=== PATIENT | male | born 1980 | race Caucasian/White ===

== ENCOUNTER 2016-12-08 11:21 | Emergency (ER) | payer BC ==
[2016-12-08 11:55] VITALS: BP 127/75
--- NOTE | 2016-12-08 12:31 | UC ---
Throat Pain/Nasal Guido HPI - HPI Summary HPI Summary: compaliont of cough and nasal congestion that startex approx6 weeks ago sore throat for over a week productive cough that is worse at night- yellow/green sputum cough id worse at night - coughing fits constantly fatigued frequent headaches- pressure in his sinuses denies fever and chills, shortness of breath taking ibuprofen for headaches with relief - History of Current Complaint Chief Complaint: UCRespiratory Stated Complaint: COUGH,CONGESTION Time Seen by Provider: 12/08/16 12:21 Hx Obtained From: Patient - Allergies/Home Medications Allergies/Adverse Reactions: Allergies Allergy/AdvReac Type Severity Reaction Status Date / Time No Known Allergies Allergy Verified 12/08/16 11:55 PMH/Surg Hx/FS Hx/Imm Hx Previously Healthy: Yes - Surgical History Surgical History: Yes Surgery Procedure, Year, and Place: L shoulder - Family History Known Family History: Positive: None, Hypertension Negative: Cardiac Disease, Diabetes - Social History Occupation: Employed Full-time Lives: With Family Alcohol Use: Rare Substance Use Type: None Smoking Status (MU): Never Smoked Tobacco Review of Systems Constitutional: Fatigue Skin: Negative Eyes: Negative ENT: Sore Throat, Ear Ache, Nasal Discharge Respiratory: Cough Cardiovascular: Negative Gastrointestinal: Negative Genitourinary: Negative Motor: Negative Neurovascular: Negative Musculoskeletal: Negative Neurological: Negative Psychological: Negative All Other Systems Reviewed And Are Negative: Yes Physical Exam Triage Information Reviewed: Yes Appearance: No Pain Distress, Well-Nourished Vital Signs: Initial Vital Signs Temp 96.3 F 12/08/16 11:53 Pulse 73 12/08/16 11:53 Resp 14 12/08/16 11:53 BP 127/75 12/08/16 11:53 Pulse Ox 97 12/08/16 11:53 Vital Signs Reviewed: Yes ENT: Positive: Pharyngeal erythema, Nasal congestion, Nasal drainage, TMs normal , Other: - frontal and maxillary sinus tenderness. Negative: TM red Neck: Positive: No Lymphadenopathy Respiratory: Positive: Lungs clear, Normal breath sounds, No respiratory distress, No accessory muscle use Cardiovascular: Positive: RRR, No Murmur Abdomen Description: Positive: Nontender, Soft Bowel Sounds: Positive: Present Musculoskeletal: Positive: No Edema Neurological: Positive: Alert Psychological Exam: Normal Skin Exam: Normal Throat Pain/Nasal Course/Dx - Course Course Of Treatment: exam completed. will treat for secondary infectiosinusitis and bronchitis - Differential Dx/Diagnosis Differential Diagnosis/HQI/PQRI: Sinusitis, Tonsillitis, URI, Other - bronchitis , pneumonia Provider Diagnoses: sinusitis, bronchitis Discharge - Discharge Plan Condition: Stable Disposition: HOME Prescriptions: Albuterol HFA INHALER* [Ventolin HFA Inhaler*] 2 puff INH Q4H PRN #1 mdi PRN Reason: Cough Amoxicillin/Clavulanate TAB* [Augmentin TAB 875*] 875 mg PO BID #20 tab Spacer/Aerosol-Holding Chamber [Aerochamber Mv] 1 mis XX Q4HR #1 mis Patient Education Materials: Sinusitis (ED), Acute Bronchitis (ED) Referrals: Earl Atwood MD [Primary Care Provider] - Additional Instructions: Please take antibiotic as directed Use your albuterol inhaler every 4-6 hours when needed for wheezing, shortness of breath or uncontrolled coughing. Increase fluids and rest Take acetaminophen or ibuprofen for fever or pain Please review your discharge instructions. If your symptoms do not improve please call your primary care provider or return to urgent care.
== END 2016-12-08 12:46 | disposition home or self-care (01) ==
LOC: UCCORT 11:21
DX: J32.9 Chronic sinusitis, unspecified (principal); J40 Bronchitis, not specified as acute or chronic
CPT/HCPCS: 99212; G0463

== ENCOUNTER 2017-01-26 21:42 | Emergency (ER) | payer BC ==
[2017-01-26 21:51] VITALS: BP 127/89
[2017-01-26] MEDS ORDERED: DOXYcycline CAP(*) 100 MG PO ONE ×2 (22:02)
--- NOTE | 2017-01-26 22:06 | UC ---
Skin Complaint HPI - HPI Summary HPI Summary: tick in back, not sure how long, does not look like a deer tick, it is large and puente in color - History of Current Complaint Chief Complaint: UCSkin Time Seen by Provider: 01/26/17 22:02 Stated Complaint: TICK Hx Obtained From: Patient Onset/Duration: Sudden Onset, Lasting Days Skin Exposure Onset/Duration: Days Ago Timing: Constant Onset Severity: Mild Current Severity: Mild Location: Discrete Aggravating: Nothing Alleviating: Nothing Associated Signs & Symptoms: Positive: Negative Related History: Insect Bite/Sting - Allergy/Home Medications Allergies/Adverse Reactions: Allergies Allergy/AdvReac Type Severity Reaction Status Date / Time No Known Allergies Allergy Verified 01/26/17 21:47 Home Medications: Home Medications NK [No Home Medications Reported] 01/26/17 [History Confirmed 01/26/17] Review of Systems Skin: Other - tick Eyes: Negative ENT: Negative Respiratory: Negative Cardiovascular: Negative Gastrointestinal: Negative Genitourinary: Negative Motor: Negative Neurovascular: Negative Musculoskeletal: Negative Neurological: Negative Psychological: Negative All Other Systems Reviewed And Are Negative: Yes PMH/Surg Hx/FS Hx/Imm Hx Previously Healthy: Yes - Surgical History Surgical History: Yes Surgery Procedure, Year, and Place: L shoulder - Family History Known Family History: Positive: None, Hypertension Negative: Cardiac Disease, Diabetes - Social History Alcohol Use: Rare Substance Use Type: None Smoking Status (MU): Never Smoked Tobacco Physical Exam Triage Information Reviewed: Yes Appearance: Well-Appearing, Well-Nourished, Pain Distress Vital Signs: Initial Vital Signs Temp 97.9 F 01/26/17 21:47 Pulse 78 01/26/17 21:47 Resp 16 01/26/17 21:47 BP 127/89 01/26/17 21:47 Pulse Ox 98 01/26/17 21:47 Vital Signs Reviewed: Yes Eye Exam: Normal Eyes: Positive: Conjunctiva Clear ENT Exam: Normal ENT: Positive: Hearing grossly normal, Pharynx normal, TMs normal Dental Exam: Normal Neck exam: Normal Neck: Positive: Supple, Nontender, No Lymphadenopathy Respiratory Exam: Normal Respiratory: Positive: Chest non-tender, Lungs clear, Normal breath sounds Cardiovascular Exam: Normal Cardiovascular: Positive: RRR, No Murmur, Pulses Normal Abdominal Exam: Normal Abdomen Description: Positive: Nontender, No Organomegaly, Soft Bowel Sounds: Positive: Present Musculoskeletal Exam: Normal Musculoskeletal: Positive: Strength Intact, ROM Intact, No Edema Neurological Exam: Normal Neurological: Positive: Alert, Muscle Tone Normal Psychological Exam: Normal Skin: Positive: Other - tick on back Course/Dx - Course Course Of Treatment: hx obtained, exam performed, meds reviewed, tick removed, doycycline given. educated on warning signs of lyme - Diagnoses Provider Diagnoses: tick bite Discharge - Discharge Plan Condition: Stable Disposition: HOME Patient Education Materials: Tick Bite (ED), Lyme Disease (ED) Additional Instructions: watch for signs of lyme disease and follow up as needed. Always check yourself after being outside for ticks. Get tick collars for the animals in the house Take the medication with food.
== END 2017-01-26 22:17 | disposition home or self-care (01) ==
LOC: UCCORT 21:42
DX: T63.891A Toxic effect of contact with other venomous animals, accidental (unintentional), initial encounter (principal)
CPT/HCPCS: 99212; A9270-GY; G0463

== ENCOUNTER 2017-11-15 09:05 | Emergency (ER) | payer BC ==
[2017-11-15 10:13] VITALS: BP 132/75
--- NOTE | 2017-11-15 10:42 | RAD ---
INDICATION: Left forearm injury. TECHNIQUE: 2 views of the left forearm were obtained. FINDINGS: The bones are in normal alignment. No fracture is seen. IMPRESSION: NO EVIDENCE FOR FRACTURE.
--- NOTE | 2017-11-15 10:46 | UC ---
Upper Extremity HPI - HPI Summary HPI Summary: Pt c/o left arm pain s/p getting left forearm caught between log and wall when splitting wood on 11/09/17. Pt states taht Ibuprofen tdoes not work and that he took a hydrocodone last night for pain. Pt sitting comfortably in exam room , using cell phone. NO acute signs of distress or pain. - History of Current Complaint Chief Complaint: UCUpperExtremity Stated Complaint: LFT HAND/ARM INJURY Time Seen by Provider: 11/15/17 10:20 Hx Obtained From: Patient ?: No Onset/Duration: Sudden Onset, Lasting Days - 6, Still Present Severity Initially: Moderate Severity Currently: Moderate Pain Intensity: 7 Character: Dull, Aching Aggravating Factor(s): Movement Alleviating Factor(s): Nothing Associated Signs And Symptoms: Positive: Swelling Related History: Dominant Hand Right - Risk Factors Non-Orthopedic Risk Factor: Negative DVT Risk Factors: Negative Septic Arthritis Risk Factor: Negative - Allergies/Home Medications Allergies/Adverse Reactions: Allergies Allergy/AdvReac Type Severity Reaction Status Date / Time No Known Allergies Allergy Verified 11/15/17 10:04 Home Medications: Home Medications Hydrocodone/Acetaminophen [Vicodin 5-300 mg] 1 tab PO ONCE PRN 11/15/17 [ History Confirmed 11/15/17] Ibuprofen TAB* [Motrin TAB* 600 MG] 600 mg PO QPM PRN 11/15/17 [History Confirmed 11/15/17] PMH/Surg Hx/FS Hx/Imm Hx Previously Healthy: Yes - Surgical History Surgical History: Yes Surgery Procedure, Year, and Place: L shoulder - Family History Known Family History: Positive: None, Hypertension Negative: Cardiac Disease, Diabetes - Social History Occupation: Employed Full-time Lives: With Family Alcohol Use: Rare Substance Use Type: None Smoking Status (MU): Never Smoked Tobacco Have You Smoked in the Last Year: No Review of Systems Constitutional: Negative Skin: Bruising Eyes: Negative ENT: Negative Respiratory: Negative Cardiovascular: Negative Gastrointestinal: Negative Genitourinary: Negative Motor: Negative Neurovascular: Negative Musculoskeletal: Arthralgia, Myalgia Neurological: Negative Psychological: Negative Is Patient Immunocompromised?: No All Other Systems Reviewed And Are Negative: Yes Physical Exam Triage Information Reviewed: Yes Appearance: Well-Appearing Vital Signs: Initial Vital Signs Temp 98.4 F 02/09/18 10:07 Pulse 62 11/15/17 10:07 Resp 18 11/15/17 10:07 BP 132/75 11/15/17 10:07 Pulse Ox 100 11/15/17 10:07 Vital Signs Reviewed: Yes Eye Exam: Normal ENT Exam: Normal Dental Exam: Normal Neck exam: Normal Respiratory Exam: Normal Musculoskeletal Exam: Normal Musculoskeletal: Positive: Other: - left forearm, posteriro, mid radial aspect, marble size tender lump. Neurological Exam: Normal Psychological Exam: Normal Skin Exam: Normal Upper Extremity Course/Dx - Course Course Of Treatment: xray: TECHNIQUE: 2 views of the left forearm were obtained. FINDINGS: The bones are in normal alignment. No fracture is seen. IMPRESSION: NO EVIDENCE FOR FRACTURE. - Differential Dx/Diagnosis Differential Diagnosis/HQI/PQRI: Contusion, Fracture (Closed) Provider Diagnoses: left forearm contusion Discharge - Discharge Plan Condition: Stable Disposition: HOME Patient Education Materials: Contusion in Adults (ED), R.I.C.E. Treatment (ED) , Arm Pain (ED) Referrals: Earl Atwood MD [Primary Care Provider] - Basilia Callaway MD [Medical Doctor] - If Needed Additional Instructions: Please follow up with your PCP or return to clinic as needed. Please note we have referred you to an orthopedic provider for you to follow up with as needed. TECHNIQUE: 2 views of the left forearm were obtained. FINDINGS: The bones are in normal alignment. No fracture is seen. IMPRESSION: NO EVIDENCE FOR FRACTURE.
== END 2017-11-15 11:12 | disposition home or self-care (01) ==
LOC: UCCORT 09:05
DX: S50.12XA Contusion of left forearm, initial encounter (principal); W23.0XXA Caught, crushed, jammed, or pinched between moving objects, initial encounter; Y93.89 Activity, other specified; Y92.9 Unspecified place or not applicable
CPT/HCPCS: 99211; G0463

== ENCOUNTER 2019-11-09 15:26 | Emergency (ER) | payer BC ==
[2019-11-09 17:24] VITALS: BP 126/82
--- NOTE | 2019-11-09 17:36 | UC ---
Respiratory Complaint HPI - HPI Summary HPI Summary: 39-year-old male comes in with a chief complaint of 4 days of upper respiratory tract infection symptoms. Said fevers chills body aches cough chest congestion. His chest congestion is getting worse and is been coughing up yellow sputum. No history of asthma or COPD he is not a smoker. He has tried some [id number] medicines which did not help very much. Does not have an albuterol inhaler. He's use the albuterol in the past when he has had bronchitis and it's helped him then. - History of Current Complaint Chief Complaint: UCGeneralIllness Stated Complaint: COUGH, FEVER Time Seen by Provider: 11/09/19 17:22 Pain Intensity: 0 - Allergies/Home Medications Allergies/Adverse Reactions: Allergies Allergy/AdvReac Type Severity Reaction Status Date / Time No Known Allergies Allergy Verified 11/09/19 17:23 Home Medications: Home Medications Aspirin/Acetaminophen/Caffeine [Excedrin Extra Strength Caplet] 1 each PO ONCE PRN 11/09/19 [History Confirmed 11/09/19] PMH/Surg Hx/FS Hx/Imm Hx Previously Healthy: Yes - Surgical History Surgical History: Yes Surgery Procedure, Year, and Place: L shoulder - Family History Known Family History: Positive: None, Hypertension Negative: Cardiac Disease, Diabetes - Social History Alcohol Use: Rare Substance Use Type: None Smoking Status (MU): Never Smoked Tobacco Have You Smoked in the Last Year: No Review of Systems All Other Systems Reviewed And Are Negative: Yes Constitutional: Positive: Fever, Other - see hpi Skin: Positive: Negative Eyes: Positive: Negative ENT: Positive: Sore Throat, Nasal Discharge Respiratory: Positive: Cough, Other - see hpi Cardiovascular: Positive: Negative Gastrointestinal: Positive: Negative Motor: Positive: Negative Neurovascular: Positive: Negative Musculoskeletal: Positive: Myalgia Neurological: Positive: Negative Psychological: Positive: Negative Is Patient Immunocompromised?: No Physical Exam Triage Information Reviewed: Yes Appearance: No Pain Distress, Well-Nourished, Ill-Appearing - mild Vital Signs: Initial Vital Signs Temp 98.5 F 11/09/19 17:19 Pulse 83 11/09/19 17:19 Resp 18 11/09/19 17:19 BP 126/82 11/09/19 17:19 Pulse Ox 99 11/09/19 17:19 Vital Signs Reviewed: Yes Eye Exam: Normal Eyes: Positive: Conjunctiva Clear ENT: Positive: Pharyngeal erythema, Nasal drainage, TMs normal Neck: Positive: Supple Respiratory: Positive: No respiratory distress, Rhonchi Cardiovascular: Positive: RRR Musculoskeletal: Positive: Strength Intact, ROM Intact Neurological: Positive: Alert, Muscle Tone Normal Psychological: Positive: Age Appropriate Behavior Skin Exam: Normal Respiratory Course/Dx - Course Course Of Treatment: DISCUSSED VIRAL VERSES BACTERIAL INFECTIONS AND THE ROLE OF ANTIBIOTICS. THE PATIENT PREFERS TO BE ON ANTIBIOTICS AT THIS TIME. - Differential Dx/Diagnosis Provider Diagnosis: Bronchitis with bronchospasm Discharge ED - Sign-Out/Discharge Documenting (check all that apply): Patient Departure All imaging exams completed and their final reports reviewed: No Studies - Discharge Plan Condition: Stable Disposition: HOME Prescriptions: Albuterol HFA INHALER* [Ventolin HFA Inhaler*] 2 puff INH Q4H PRN #1 mdi PRN Reason: Wheezing Azithromyxin JEANNETTE (NF) [Z-Jeannette (Zithromax) 250 mg tabs #6] 2 tab PO .TODAY, THEN 1 DAILY #6 tab Patient Education Materials: Acute Bronchitis (ED), Bronchospasm (ED) Referrals: Earl Atwood MD [Primary Care Provider] - Additional Instructions: FOLLOW UP WITH YOUR DOCTOR IF NOT COMPLETELY IMPROVED. GET REEVALUATED SOONER IF NOT IMPROVING OR WORSE OR ANY QUESTIONS OR CONCERNS. - Billing Disposition and Condition Condition: STABLE Disposition: Home
== END 2019-11-09 17:52 | disposition home or self-care (01) ==
LOC: UCCORT 15:26
DX: J40 Bronchitis, not specified as acute or chronic (principal); J98.01 Acute bronchospasm; J02.9 Acute pharyngitis, unspecified
CPT/HCPCS: 99212; G0463